=== PATIENT | female | born 1990 | race Two or more races ===

== ENCOUNTER 2019-12-18 09:49 | Outpatient (CLI) | payer OTHER | END 2019-12-18 10:00 | disposition home or self-care (01) | LOC: RX STUDY 09:49 | DX: N80.8 Other endometriosis (principal) ==

== ENCOUNTER 2023-02-03 09:40 | Outpatient (CLI) | payer OTHER | END 2023-02-03 09:45 | disposition home or self-care (01) | LOC: RX STUDY 09:40 | PROVIDERS: ATTEND Obstetrics & Gynecology | DX: N93.0 Postcoital and contact bleeding (principal) ==